=== PATIENT | male | born 2000 | race Hispanic/Latino ===

== ENCOUNTER 2018-08-12 19:07 | Emergency (ER) | payer BC ==
[2018-08-12 19:41] VITALS: BP 138/75; PULSE 88; RESP 16; TEMP 98.2; O2SAT 100
[2018-08-12] MEDS ORDERED: Vancomycin 1 g Inj ONE (20:30)
[2018-08-12] MEDS ORDERED: Lidocaine 1% Inj (20ml) IJ ONE (20:45)
--- NOTE | 2018-08-12 20:45 | CP.PCM.CON ---
History of Present Illness - History of Present Illness History of Present Illness: Podiatry consult note for Dr. Chan, 17 yo with no Pmhx seen and evaluated in the ED for right foot fifth toe pain. Patient states he scratched his toe excessively in his sleep and developed a painful blister the next morning. Patient states he saw a meat stringer regarding this and was advised to keep it covered and was prescribed bactrim. Patient states he has been taking the antibiotic twice a day however has not noticed any difference and states its gotten worse. States he noticed purulent drainage from the site this afternoon and decided to come to the ED. Patient states he has experienced this before in his shoulder, thigh, and groin however its usually resolved with a course of antibiotics. States he had food poisoning this past weekend and has experienced nausea and vomiting. However no fever, chills, SOB. Pmhx: none Pshx: none Allergies: shellfish, pets, amoxicillin (rash and hives) Social hx: denies smoking or recreational drugs, admits to occasional alcohol Meds Home Medications: Home Medication List Medication Instructions Recorded Confirmed Type Clindamycin [Cleocin] 450 mg PO TID #63 cap 08/12/18 Rx Naproxen [Naprosyn] 500 mg PO BID PRN #15 tablet 08/12/18 Rx Allergies/Adverse Reactions: Allergies Allergy/AdvReac Type Severity Reaction Status Date / Time amoxicillin Allergy RASH Verified 08/12/18 19:37 - Medications Medications: Current Medications Vancomycin HCl 1 gm/ Sodium (Chloride) 250 mls @ 166.667 mls/hr IVPB DAILY HORACIO; Protocol Physical Exam - Constitutional Appears: Well, Non-toxic, No Acute Distress - Head Exam Head Exam: ATRAUMATIC - Respiratory Exam Respiratory Exam: NORMAL BREATHING PATTERN - Extremities Exam Additional comments: Right lower extremity exam: vascular: DP/PT 2/4, CFT <3 secs x5, TG warm to warm ( warmer over the lateral dorsal foot), minimal dorsal edema, erythema noted on dorsal lateral aspect of the foot. derm: wound noted on the dorsal aspect of the fifth toe measuring approximately .5cm x .5 cm with active purulent drainage, no malodor, no tracking or tunneling noted, no probe to bone xerosis of skin noted on the plantar distal aspect of the foot. IDM in the 3rd and 4th interspace with no opening ortho: pain with ROM of the fifth toe, no pain with ROM of the ankle, no pain with ROM of 1-4 digits. - Neurological Exam Neurological exam: Alert, Oriented x3 Results - Vital Signs Recent Vital Signs: Last Vital Signs Temp 98.2 F 08/12/18 19:37 Pulse 88 08/12/18 19:37 Resp 16 08/12/18 19:37 BP 138/75 08/12/18 19:37 Pulse Ox 100 08/12/18 19:37 - Labs Result Diagrams: 08/12/18 20:40 08/12/18 20:40 Assessment & Plan - Assessment and Plan (Free Text) Assessment: 17 yo male seen and evaluated for right foot infected wound with cellulitis on the dorsal aspect of the foot Plan: Patient seen and evaluated Chart, labs and vitals reviewed; afebrile and absent leukocytosis X-rays reviewed; erosion noted on the medial aspect of the fifth met head to suggest osteomyelitis. As per podiatry, clinical history does not match the x-ray read to suggest osteomyelitis as the blister has only been present for 4 days. 6 c of 1% lidocaine injected proximally to the abscess. Site drained with sterile suture kit and #15 blade. Patient tolerated without any complications. Patient advised to stop taking bactrim, patient to switch to clindamycin 450 mg TID Patient advised to take pain medications prn Patient advised to return to ED if symptoms worsen Patient to follow up with Dr. Chan or podiatry clinic within the next few days Thank you for the consult
[2018-08-12] MEDS ORDERED: Lidocaine Hydrochloride 1% 10 ML ONE (20:51)
[2018-08-12 21:00] LABS: BASO % 0.5 % (0.0-2.0); EOS # 0.4 K/uL (0.0-0.7); EOS % 4.3 % (0.0-4.0); LYMPH # 1.5 K/uL (1.0-4.3); LYMPH % 17.6 % (20.0-40.0); MEAN CELL VOLUME 93.2 fl (80.0-94.0); MEAN CORPUSCULAR HEMOGLOBIN 32.4 pg (27.0-31.0); MEAN CORPUSCULAR HGB CONC 34.8 g/dL (33.0-37.0); MEAN PLATELET VOLUME 8.6 fl (7.2-11.7); MONO # 0.5 K/uL (0.0-0.8); MONO % 5.9 % (0.0-10.0); NEUT # 6.3 K/uL (1.8-7.0); NEUT % 71.7 % (50.0-75.0); NRBC % 0.1 % (0.0-0.0); RBC 4.63 Mil/uL (4.40-5.90); RED CELL DISTRIBUTION WIDTH 12.5 % (11.5-14.5); WHITE BLOOD COUNT 8.8 K/uL (4.8-10.8)
[2018-08-12 21:07] LABS: ALB/GLOB RATIO 1.2 (1.0-2.1); ALBUMIN 4.5 g/dL (3.5-5.0); ALT/SGPT 15 U/L (21-72); AST/SGOT 23 U/L (17-59); BLOOD UREA NITROGEN 12 mg/dl (9-20); GFR NON-AFRICAN AMERICAN > 60
[2018-08-12 21:08] LABS: INR 1.1; PROTHROMBIN TIME 12.6 Seconds (9.8-13.1)
--- NOTE | 2018-08-12 21:09 | ED PDOC ---
Lower Extremity Pain/Injury Time Seen by Provider: 08/12/18 19:56 Chief Complaint (Nursing): Abnormal Skin Integrity Chief Complaint (Provider): Right foot pain History Per: Patient History/Exam Limitations: no limitations Onset/Duration Of Symptoms: Days Current Symptoms Are (Timing): Still Present Additional Complaint(s): 17 year old male presents to the ED for an evaluation of right foot. He reports of a boil on his foot and is currently unable to walk due to the pain. Patient has a history of staph infection and the last infection was on January 19. He went to the channeler insole on Saturday who prescribed Bactrim and Xepi cream without any relief. He is unsure of his last tetanus shot. Otherwise, patient denies fever, numbness or tingling. PMD: no family provider Past Medical History Reviewed: Historical Data, Nursing Documentation, Vital Signs Vital Signs: Last Vital Signs Temp 98.2 F 08/12/18 19:37 Pulse 88 08/12/18 19:37 Resp 16 08/12/18 19:37 BP 138/75 08/12/18 19:37 Pulse Ox 100 08/12/18 19:37 - Medical History Other PMH: staph infection - Family History Family History: States: Unknown Family Hx - Home Medications Home Medications: Ambulatory Orders Medication Instructions Recorded Clindamycin [Cleocin] 450 mg PO TID #63 cap 08/12/18 Naproxen [Naprosyn] 500 mg PO BID PRN #15 tablet 08/12/18 - Allergies Allergies/Adverse Reactions: Allergies Allergy/AdvReac Type Severity Reaction Status Date / Time amoxicillin Allergy RASH Verified 08/15/18 02:28 peanut Allergy ANAPHYLAXIS Verified 08/15/18 02:28 shellfish derived Allergy ANAPHYLAXIS Verified 08/15/18 02:28 Review of Systems ROS Statement: Except As Marked, All Systems Reviewed And Found Negative Constitutional: Negative for: Fever Musculoskeletal: Positive for: Foot Pain (right) Neurological: Negative for: Weakness, Numbness Physical Exam - Reviewed Nursing Documentation Reviewed: Yes Vital Signs Reviewed: Yes - Physical Exam Appears: Positive for: Well, Non-toxic, No Acute Distress Head Exam: Positive for: ATRAUMATIC, NORMAL INSPECTION, NORMOCEPHALIC Skin: Positive for: Normal Color, Warm, Dry. Negative for: Rash Cardiovascular/Chest: Positive for: Regular Rate, Rhythm Respiratory: Positive for: Normal Breath Sounds. Negative for: Decreased Breath Sounds, Respiratory Distress Pulses-Dorsalis Pedis (R): 2+ Extremity: Positive for: Tenderness (to touch), Pedal Edema, Other (erythema and induration on anterior right foot. Ulceration on right 5th digit with drainage; no crepitus ) Neurologic/Psych: Positive for: Alert, Oriented (x3). Negative for: Motor/Sensory Deficits - Laboratory Results Result Diagrams: 08/12/18 20:40 08/12/18 20:40 - ECG O2 Sat by Pulse Oximetry: 100 (RA) Pulse Ox Interpretation: Normal Medical Decision Making Medical Decision Making: Time: 2017 Plan: --CMP --CBC w/ Differential --PTT --Prothrombin time --Lidocaine 1% (20ml) --Vancomycin inj 1gm --Blood culture --Foot right 3 views [RAD] --Reevaluation Accession No. : [id number] Patient Name / ID : JOSEPHINE Mc / [id number] Exam Date : 08/12/2018 20:45:50 ( Approved ) Study Comment : Sex / Age : M / [id number] Creator : Kylie Elizondo Dictator : [facility] Chaplain : [employer] Blower : Kylie Elizondo Approver2 : Report Date : 08/13/2018 10:39:29 My Comment : Date of service: 08/12/2018 PROCEDURE: Right Foot Radiographs. HISTORY: Cellulitis COMPARISON: None. FINDINGS: BONES: Normal. No fracture. JOINTS: Normal. SOFT TISSUES: Swelling. No gas-forming cellulitis noted. OTHER FINDINGS: None. IMPRESSION: No fracture, periosteal reaction or cortical destruction seen to suggest osteomyelitis. In this patient with a history of cellulitis. Soft tissue swelling findings are compatible with this history. No gas-forming cellulitis noted. Pt evaluated by Podiatry resident in ED. Scribe Attestation: Documented by Veronica Ghotra acting as a scribe for Guerita Durand MD Provider Attestation: All medical record entries made by the Scribe were at my direction and personally dictated by me. I have reviewed the chart and agree that the record accurately reflects my personal performance of the history, physical exam, medical decision making, and the department course for this patient. I have also personally directed, reviewed, and agree with the discharge instructions and disposition. Disposition - Clinical Impression Clinical Impression: Cellulitis - Disposition Referrals: Podiatry Clinic [Outside] Olvin Chan DPM [Staff Provider] - Disposition: Routine/Home Disposition Time: 23:12 Condition: STABLE Prescriptions: Clindamycin [Cleocin] 450 mg PO TID #63 cap Naproxen [Naprosyn] 500 mg PO BID PRN #15 tablet PRN Reason: Pain, Moderate (4-7) Instructions: Cellulitis and Erysipelas (Skin Infections) Forms: [employer] (Irish)
[2018-08-12 21:10] LABS: PARTIAL THROMBOPLASTIN TIME 32.5 Seconds (25.6-37.1)
--- NOTE | 2018-08-13 10:42 | RAD ---
Date of service: 08/12/2018 PROCEDURE: Right Foot Radiographs. HISTORY: Cellulitis COMPARISON: None. FINDINGS: BONES: Normal. No fracture. JOINTS: Normal. SOFT TISSUES: Swelling. No gas-forming cellulitis noted. OTHER FINDINGS: None. IMPRESSION: No fracture, periosteal reaction or cortical destruction seen to suggest osteomyelitis. In this patient with a history of cellulitis. Soft tissue swelling findings are compatible with this history. No gas-forming cellulitis noted.
== END 2018-08-12 23:29 | disposition home or self-care (01) ==
LOC: H.ER 19:07
DX: L03.031 Cellulitis of right toe (principal); Z88.0 Allergy status to penicillin
CPT/HCPCS: 73630; 80053; 85025; 85610; 85651; 85730; 87040; 87070; 87149; 87181; 87205; 96374; 99283; J2270

== ENCOUNTER 2018-08-14 16:15 | Inpatient (IN) | payer BC ==
--- NOTE | 2018-08-14 19:06 | ED PDOC ---
Lower Extremity Pain/Injury Time Seen by Provider: 08/14/18 17:50 Chief Complaint (Nursing): Lower Extremity Problem/Injury Chief Complaint (Provider): right foot cellulitis History Per: Patient History/Exam Limitations: no limitations Additional Complaint(s): 17 y/o M with hx of asthma who presents with Right foot cellulitis. Patient states that he was seen here in ED 2 days ago at which time he was noted to have Right foot cellulitis that began after scratching his foot. He was given Vancomycin 1G IV and discharged on Clindamycin PO. He states that he only began yesterday afternoon and already feels significant improvement in pain. He was called by car shakeout operator today and told to come back to ER as his blood cultures showed bacteria in his blood. Pt denies fever, chills or night sweats. States that his foot looks about the same as before but pain has improved. Past Medical History Reviewed: Historical Data, Nursing Documentation, Vital Signs Vital Signs: Last Vital Signs Temp 98.3 F 08/14/18 16:50 Pulse 81 08/14/18 16:50 Resp 16 08/14/18 16:50 BP 152/86 H 08/14/18 16:50 Pulse Ox 98 08/14/18 16:50 - Medical History PMH: Asthma - Family History Family History: States: Unknown Family Hx - Immunization History Hx Tetanus Toxoid Vaccination: No Hx Influenza Vaccination: No Hx Pneumococcal Vaccination: No - Home Medications Home Medications: Ambulatory Orders Medication Instructions Recorded Clindamycin [Cleocin] 450 mg PO TID #63 cap 08/12/18 Naproxen [Naprosyn] 500 mg PO BID PRN #15 tablet 08/12/18 - Allergies Allergies/Adverse Reactions: Allergies Allergy/AdvReac Type Severity Reaction Status Date / Time amoxicillin Allergy RASH Verified 08/12/18 19:37 peanut Allergy ANAPHYLAXIS Verified 08/14/18 16:50 shellfish derived Allergy ANAPHYLAXIS Verified 08/14/18 16:50 Review of Systems Constitutional: Negative for: Fever, Chills Musculoskeletal: Positive for: Foot Pain Physical Exam - Reviewed Nursing Documentation Reviewed: Yes Vital Signs Reviewed: Yes - Physical Exam Appears: Positive for: Well Skin: Positive for: Normal Color Extremity: Positive for: Tenderness (Right foot with ulceration by 5th right digit with diffuse erythema and edema to ankle, + increased warmth, no drainage or fluctuance. ) Neurologic/Psych: Positive for: Alert, Oriented - Laboratory Results Result Diagrams: 08/14/18 18:09 08/14/18 18:09 - ECG O2 Sat by Pulse Oximetry: 98 Medical Decision Making Medical Decision Making: CBC, BMP, VBG lactate Blood cultures Vanco 1G IV x 1 ordered after blood cultures. Podiatry consult WBCs 6K VBG lactate 0.8 20:19: spoke with Dr. Delgadillo re: admission for bacteremia due to cellulitis and care transferred. Disposition - Clinical Impression Clinical Impression: Bacteremia due to Gram-positive bacteria - Patient ED Disposition Is Patient to be Admitted: Yes Discussed With DruRbina: Ant Delgadillo Counseled Patient/Family Regarding: Studies Performed, Diagnosis, Need For Followup - Disposition Disposition: Transfer of Care Disposition Time: 20:29 Condition: FAIR Forms: [employer] (Kinyarwanda)
[2018-08-14 19:12] LABS: VENOUS BLOOD GAS BASE EXCESS 4.9 mmol/L (0.0-2.0); VENOUS BLOOD GAS PCO2 53 mmHg (40-60); VENOUS BLOOD GAS PO2 24 mm/Hg (30-55); VENOUS BLOOD PH 7.38 (7.32-7.43)
[2018-08-14 19:35] LABS: BASO % 0.8 % (0.0-2.0); EOS # 0.2 K/uL (0.0-0.7); EOS % 3.3 % (0.0-4.0); HEMOGLOBIN 14.5 g/dL (12.0-18.0); LYMPH # 1.3 K/uL (1.0-4.3); LYMPH % 22.5 % (20.0-40.0); MEAN CELL VOLUME 92.6 fl (80.0-94.0); MEAN CORPUSCULAR HGB CONC 34.6 g/dL (33.0-37.0); MEAN PLATELET VOLUME 8.6 fl (7.2-11.7); MONO # 0.4 K/uL (0.0-0.8); MONO % 7.1 % (0.0-10.0); NEUT % 66.3 % (50.0-75.0); NRBC % 0.1 % (0.0-0.0); RBC 4.53 Mil/uL (4.40-5.90); RED CELL DISTRIBUTION WIDTH 12.5 % (11.5-14.5)
[2018-08-14 20:00] LABS: BLOOD UREA NITROGEN 21 mg/dl (9-20); CALCIUM 9.9 mg/dL (8.4-10.2); GFR NON-AFRICAN AMERICAN > 60
[2018-08-14] MEDS ORDERED: Vancomycin 1 g Inj ONE (20:41)
[2018-08-15] MEDS ORDERED: Sodium Chloride 0.9% 1,000 ML IV SCH (00:45)
[2018-08-15] MEDS ORDERED: levoFLOXacin 500 mg in D5W 500 MG/100 ML BAG IVPB SCH (05:00)
[2018-08-15 09:19] LABS: BASO % 0.7 % (0.0-2.0); EOS # 0.3 K/uL (0.0-0.7); EOS % 6.3 % (0.0-4.0); HEMOGLOBIN 14.6 g/dL (12.0-18.0); LYMPH # 1.3 K/uL (1.0-4.3); LYMPH % 31.1 % (20.0-40.0); MEAN CELL VOLUME 93.7 fl (80.0-94.0); MEAN CORPUSCULAR HEMOGLOBIN 32.3 pg (27.0-31.0); MEAN CORPUSCULAR HGB CONC 34.5 g/dL (33.0-37.0); MEAN PLATELET VOLUME 8.1 fl (7.2-11.7); MONO # 0.2 K/uL (0.0-0.8); NEUT # 2.3 K/uL (1.8-7.0); NEUT % 55.9 % (50.0-75.0); NRBC % 0.2 % (0.0-0.0); RBC 4.51 Mil/uL (4.40-5.90); RED CELL DISTRIBUTION WIDTH 12.6 % (11.5-14.5); WHITE BLOOD COUNT 4.1 K/uL (4.8-10.8)
[2018-08-15] MEDS: Enoxaparin 40 mg Syringe SC SCH (09:24)
[2018-08-15 10:48] LABS: ALB/GLOB RATIO 1.5 (1.0-2.1); ALBUMIN 4.6 g/dL (3.5-5.0); ALT/SGPT 31 U/L (21-72); AST/SGOT 26 U/L (17-59); BLOOD UREA NITROGEN 17 mg/dl (9-20); CALCIUM 9.7 mg/dL (8.4-10.2); GFR NON-AFRICAN AMERICAN > 60
--- NOTE | 2018-08-15 12:34 | CP.PCM.HP ---
History of Present Illness - History of Present Illness History of Present Illness: CC: Bactremia from Right foot Cellulitis History of Present Illness: A 17 y/o M with hx of asthma who presents with Right foot cellulitis. Patient states that he was seen here in ED 2 days ago at which time he was noted to have Right foot Cellulitis that began after scratching his foot. He was given Vancomycin 1G IV and discharged on Clindamycin PO. He states that he only began yesterday afternoon and already feels significant improvement in pain. 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 Pt denies fever, chills or night sweats. States that his foot looks about the same as before but pain has improved. Patient also states had Cellulitis with MRSA on the Upper extremities and Thigh since january. Denies any IVDA. Present on Admission - Present on Admission Any Indicators Present on Admission: No Review of Systems - Review of Systems All systems: reviewed and no additional remarkable complaints except Review of Systems: As per HPI Past Patient History - Past Medical History & Family History Past Medical History?: Yes - Past Social History Smoking Status: Never Smoked Alcohol: None Drugs: Denies - PULMONARY Hx Asthma: Yes - NEUROLOGICAL Hx Neurological Disorder: No - HEENT Hx HEENT Problems: No - RENAL Hx Chronic Kidney Disease: No - ENDOCRINE/METABOLIC Hx Endocrine Disorders: No - HEMATOLOGICAL/ONCOLOGICAL Hx Blood Disorders: No Hx AIDS: No Hx Human Immunodeficiency Virus (HIV): No - INTEGUMENTARY Hx Dermatological Problems: No Other/Comment: Staph infections - MUSCULOSKELETAL/RHEUMATOLOGICAL Hx Musculoskeletal Disorders: No Hx Falls: No - GASTROINTESTINAL Hx Gastrointestinal Disorders: No - GENITOURINARY/GYNECOLOGICAL Hx Genitourinary Disorders: No - PSYCHIATRIC Hx Psychophysiologic Disorder: No Hx Substance Use: No - SURGICAL HISTORY Hx Surgeries: No - ANESTHESIA Hx Anesthesia: No Meds Allergies/Adverse Reactions: Allergies Allergy/AdvReac Type Severity Reaction Status Date / Time amoxicillin Allergy RASH Verified 08/15/18 02:28 peanut Allergy ANAPHYLAXIS Verified 08/15/18 02:28 shellfish derived Allergy ANAPHYLAXIS Verified 08/15/18 02:28 Physical Exam - Constitutional Appears: Well - Head Exam Head Exam: ATRAUMATIC, NORMAL INSPECTION, NORMOCEPHALIC - Eye Exam Eye Exam: EOMI, Normal appearance, PERRL Pupil Exam: NORMAL ACCOMODATION, PERRL - ENT Exam ENT Exam: Mucous Membranes Moist, Normal Exam - Neck Exam Neck exam: Positive for: Normal Inspection - Respiratory Exam Respiratory Exam: Clear to Auscultation Bilateral, NORMAL BREATHING PATTERN - Cardiovascular Exam Cardiovascular Exam: REGULAR RHYTHM, +S1, +S2 - GI/Abdominal Exam GI & Abdominal Exam: Normal Bowel Sounds, Soft. absent: Tenderness - Extremities Exam Extremities exam: Positive for: full ROM, normal capillary refill Additional comments: wound noted on the dorsal aspect of the fifth toe measuring approximately .5cm x .5cm x 1.7cm with active purulent drainage, no malodor, no tunneling but deep probe appreciated - no probe to bone IDM in the 3rd and 4th interspace with no opening - Back Exam Back exam: FULL ROM, NORMAL INSPECTION - Neurological Exam Neurological exam: Alert, CN II-XII Intact, Normal Gait, Oriented x3, Reflexes Normal - Psychiatric Exam Psychiatric exam: Normal Affect, Normal Mood - Skin Skin Exam: Dry, Intact, Normal Color, Warm Results - Vital Signs Recent Vital Signs: Last Vital Signs Temp 99.1 F 08/15/18 09:00 Pulse 70 08/15/18 09:00 Resp 17 08/15/18 09:00 BP 121/69 08/15/18 09:00 Pulse Ox 99 08/15/18 09:00 - Labs Result Diagrams: 08/15/18 09:00 08/15/18 09:00 Labs: Laboratory Results - last 24 hr 08/14/18 08/14/18 08/14/18 18:09 18:09 19:04 WBC 6.0 RBC 4.53 Hgb 14.5 Hct 42.0 MCV 92.6 MCH 32.0 H MCHC 34.6 RDW 12.5 Plt Count 170 MPV 8.6 Neut % (Auto) 66.3 Lymph % (Auto) 22.5 [place] % (Auto) 7.1 Eos % (Auto) 3.3 Baso % (Auto) 0.8 Neut # (Auto) 4.0 Lymph # (Auto) 1.3 [place] # (Auto) 0.4 Eos # (Auto) 0.2 Baso # (Auto) 0.0 ESR pO2 24 L VBG pH 7.38 VBG pCO2 53 VBG HCO3 27.2 VBG Total CO2 33.0 H VBG O2 Sat (Calc) 43.1 VBG Base Excess 4.9 H VBG Potassium 4.5 Glucose 94 Lactate 0.8 FiO2 21.0 Sodium 139 139.0 Potassium 4.5 Chloride 97 L 104.0 Carbon Dioxide 29 Anion Gap 18 BUN 21 H Creatinine 1.0 Est GFR ( Amer) > 60 Est GFR (Non-Af Amer) > 60 Random Glucose 90 Calcium 9.9 Total Bilirubin AST ALT Alkaline Phosphatase Total Protein Albumin Globulin Albumin/Globulin Ratio Venous Blood Potassium 4.5 08/15/18 08/15/18 09:00 09:00 WBC 4.1 L RBC 4.51 Hgb 14.6 Hct 42.3 MCV 93.7 MCH 32.3 H MCHC 34.5 RDW 12.6 Plt Count 174 MPV 8.1 Neut % (Auto) 55.9 Lymph % (Auto) 31.1 [place] % (Auto) 6.0 Eos % (Auto) 6.3 H Baso % (Auto) 0.7 Neut # (Auto) 2.3 Lymph # (Auto) 1.3 [place] # (Auto) 0.2 Eos # (Auto) 0.3 Baso # (Auto) 0.0 ESR 12 pO2 VBG pH VBG pCO2 VBG HCO3 VBG Total CO2 VBG O2 Sat (Calc) VBG Base Excess VBG Potassium Glucose Lactate FiO2 Sodium 141 Potassium 4.1 Chloride 97 L Carbon Dioxide 31 H Anion Gap 17 BUN 17 Creatinine 0.9 Est GFR ( Amer) > 60 Est GFR (Non-Af Amer) > 60 Random Glucose 133 H Calcium 9.7 Total Bilirubin 1.1 AST 26 ALT 31 Alkaline Phosphatase 65 Total Protein 7.7 Albumin 4.6 Globulin 3.1 Albumin/Globulin Ratio 1.5 Venous Blood Potassium Assessment & Plan (1) Cellulitis of right foot Assessment and Plan: R/O Osteomyelitis Status: Acute Priority: High (2) Bacteremia due to Gram-positive bacteria Assessment and Plan: Community Acquired MRSA R/O Infective Endocarditis Status: Acute Priority: High - Assessment and Plan (Free Text) Plan: IVF IV Vancomycin and Levaquin Wound Care Daily ESR/CRP MRI of the right Foot TTE Pain Control with IV Medication IDConsult Harvest Manager onboard
--- NOTE | 2018-08-15 17:20 | CP.PCM.PN ---
Subjective - Date & Time of Evaluation Date of Evaluation: 08/15/18 Time of Evaluation: 17:11 - Subjective Subjective: I D NOTE PATIENT EXAMINED ,HISTORY TAKEN EMR REVIEWED,HAS POSITIVE BLOOD CULTURES FOR MRSA.AWAIT ECHOCARDIOGRAM & MRI DISCUSSED C PATIENT AND HIS MOTHER HAS PAST HISTORY OF STAPHYLOCOCCAL INFECTIONS IF OSTEOMYELITIS AND /OR WHAT APPEARS TO BE SEPTIC ARTHRITIS WILL NEED 6 WEEKS OF IV ANTIBIOTIC RX FULL COSULT TO BE DICTATED Objective - Vital Signs/Intake and Output Vital Signs (last 24 hours): Temp Pulse Resp BP Pulse Ox 99.1 F 70 17 121/69 99 08/15/18 09:00 08/15/18 09:00 08/15/18 09:00 08/15/18 09:00 08/15/18 09:00 Intake and Output: 08/15/18 08/15/18 06:59 18:59 Intake Total 650 Balance 650 - Medications Medications: Current Medications Enoxaparin Sodium (Lovenox) 40 mg SC DAILY HORACIO; Protocol Last Admin: 08/15/18 09:24 Dose: 40 mg Vancomycin HCl 1 gm/ Sodium (Chloride) 250 mls @ 166.667 mls/hr IVPB Q12 HORACIO; Protocol Last Admin: 08/15/18 09:24 Dose: 166.667 mls/hr Sodium Chloride (Sodium Chloride 0.9%) 1,000 mls @ 100 mls/hr IV .Q10H HORACIO Stop: 08/16/18 00:44 Last Admin: 08/15/18 00:59 Dose: 100 mls/hr Levofloxacin/Dextrose (Levaquin 500mg) 500 mg in 100 mls @ 100 mls/hr IVPB DAILY@0500 HORACIO; Protocol Ketorolac Tromethamine (Toradol) 15 mg IVP Q6 PRN PRN Reason: Pain, moderate (4-7) Morphine Sulfate (Morphine) 2 mg IVP Q4 PRN PRN Reason: Pain, severe (8-10) Mupirocin (Bactroban Ointment) 1 applic TOP BID HROACIO - Labs Labs: 08/15/18 09:00 08/15/18 09:00
--- NOTE | 2018-08-15 17:27 | MRI ---
Date of service: 08/15/2018 PROCEDURE: MRI Right Foot HISTORY: Pain. COMPARISON: Right foot radiographs 08/12/2018. TECHNIQUE: Multiecho multiplanar sequences were performed through the right foot without the use of intravenous contrast. FINDINGS: Forefoot/midfoot anatomy captured this exam excluding the hindfoot. BONES: No fracture. Normal marrow signal. No overt MR pattern of osteomyelitis in the visualized bony structures of the forefoot and midfoot. MUSCLES: Normal. SOFT TISSUES: Extensive dorsal soft tissue edema is appreciated primarily throughout the midfoot and proximal portion of the forefoot without definite abscess formation appreciable. Some plantar edema is appreciated at the forefoot as well though this is minimal. LISFRANC LIGAMENT: No intrinsic signal abnormality identified. PLANTAR PLATE: Normal. EXTENSOR TENDONS: Normal. FLEXOR TENDONS: Normal. OTHER FINDINGS: None. IMPRESSION: Extensive dorsal foot subcutaneous soft tissue edema is seen with minimal edema at the forefoot plantar soft tissues. No abscess or osteomyelitis pattern. Tendons appear intact without tear or tenosynovitis. No definite abscess formation appreciable.
--- NOTE | 2018-08-15 17:36 | CARD ---
APPROVED REPORT Date of service: 08/15/2018 EXAM: Two-dimensional and M-mode echocardiogram with Doppler and color Doppler. Other Information Quality : GoodRhythm : NSR INDICATION Subacute bacterial endocarditis 2D DIMENSIONS IVSd0.95 (0.7-1.1cm)LVDd4.28 (3.9-5.9cm) LVOT Diameter2.47 (1.8-2.4cm)PWd1.18 (0.7-1.1cm) IVSs1.25 (0.8-1.2cm)LVDs3.18 (2.5-4.0cm) FS (%) 25.6 %PWs1.46 (0.8-1.2cm) M-Mode DIMENSIONS Left Atrium (MM)3.26 (2.5-4.0cm)IVSd0.79 (0.7-1.1cm) Aortic Root3.44 (2.2-3.7cm)LVDd5.38 (4.0-5.6cm) Aortic Cusp Exc.2.38 (1.5-2.0cm)PWd0.76 (0.7-1.1cm) IVSs1.32 cmFS (%) 44 % LVDs3.00 (2.0-3.8cm)PWs1.44 cm Aortic Valve AoV Peak Hfszzqcb178.1cm/sAoV VTI31.1cmAO Peak GR.12mmHg LVOT Peak Nmidkqfq43.7cm/sLVOT VTI20.92cmAO Mean GR.6mmHg DALILA (VMAX)1.67fl9AAS (VTI)1.26gc2EP P 1/2 Nsin427oj Mitral Valve MV E Qihmxwgx61.4cm/sMV DECEL PPTT471tiTU A Nygnjivy21.5cm/s MV FVR73sgE/A ratio1.9MVA (PHT)4.52cm2 TDI Lateral E' Peak V22.29cm/sMedial E' Peak V13.28cm/sE/Lateral E'3.7 E/Medial E'6.3 LEFT VENTRICLE The left ventricle is normal size. There is normal left ventricular wall thickness. The left ventricular systolic function is normal. The estimated ejection fraction is 55-60% No regional wall motion abnormalities noted.. The left ventricular diastolic function is normal. No left ventricle thrombus noted on this study. There is no ventricular septal defect visualized. There is no left ventricular aneurysm. There is no mass noted in the left ventricle. RIGHT VENTRICLE The right ventricle is normal size. There is normal right ventricular wall thickness. The right ventricular systolic function is normal. ATRIA The left atrium size is normal. The right atrium size is normal. The interatrial septum is intact with no evidence for an atrial septal defect. AORTIC VALVE The aortic valve is normal in structure. Mild to moderate aortic regurgitation is present. There is no aortic valvular stenosis. There is no aortic valvular vegetation. MITRAL VALVE The mitral valve is normal in structure. There is no evidence of mitral valve prolapse. There is no mitral valve stenosis. There is no mitral valve regurgitation noted. TRICUSPID VALVE The tricuspid valve is normal in structure. There is no tricuspid valve regurgitation noted. There is no tricuspid valve prolapse or vegetation. There is no tricuspid valve stenosis. PULMONIC VALVE The pulmonary valve is normal in structure. There is trace pulmonic valvular regurgitation. There is no pulmonic valvular stenosis. GREAT VESSELS The aortic root is normal in size. The ascending aorta is normal in size. The pulmonary artery is normal. The IVC is normal in size and collapses >50% with inspiration. PERICARDIAL EFFUSION There is no pericardial effusion. There is no pleural effusion. <Conclusion> The estimated ejection fraction is 55-60% The left ventricular diastolic function is normal. The left atrium size is normal. Mild to moderate aortic regurgitation is present. There is no tricuspid valve regurgitation noted. There is no obvious vegetation noted on this study but aortic regurgitation is concerning for possible endocarditis. Correlate clinically.
--- NOTE | 2018-08-15 18:47 | CP.PCM.CON ---
History of Present Illness - History of Present Illness History of Present Illness: Podiatry consult note - Dr. Chan 17M with pmhx of asthma seen and evaluated at bedside for right foot wound and cellulitis. Patient was seen earlier this week in the ED where his wound was drained and he was sent home on PO abx. Patients wound and blood cx came back with gram positive cocci and he was contacted and instructed to return to the hospital for IV abx and admission. States that his foot has been feeling better since he was seen this week and that he has been able to move his toes and rest more comfortably. States that he has been nonweightbearing to the right foot and ambulating with crutches. Denies n/v/f/c/sob/cp and has no other acute complaints at this time. PMHx: asthma PSHx: denies All: amoxicillin, peanut, shellfish Past Patient History - Past Medical History & Family History Past Medical History?: Yes - Past Social History Smoking Status: Never Smoked - PULMONARY Hx Asthma: Yes - NEUROLOGICAL Hx Neurological Disorder: No - HEENT Hx HEENT Problems: No - RENAL Hx Chronic Kidney Disease: No - ENDOCRINE/METABOLIC Hx Endocrine Disorders: No - HEMATOLOGICAL/ONCOLOGICAL Hx Blood Disorders: No Hx AIDS: No Hx Human Immunodeficiency Virus (HIV): No - INTEGUMENTARY Hx Dermatological Problems: No Other/Comment: Staph infections - MUSCULOSKELETAL/RHEUMATOLOGICAL Hx Musculoskeletal Disorders: No Hx Falls: No - GASTROINTESTINAL Hx Gastrointestinal Disorders: No - GENITOURINARY/GYNECOLOGICAL Hx Genitourinary Disorders: No - PSYCHIATRIC Hx Psychophysiologic Disorder: No Hx Substance Use: No - SURGICAL HISTORY Hx Surgeries: No - ANESTHESIA Hx Anesthesia: No Meds Allergies/Adverse Reactions: Allergies Allergy/AdvReac Type Severity Reaction Status Date / Time amoxicillin Allergy RASH Verified 08/15/18 02:28 peanut Allergy ANAPHYLAXIS Verified 08/15/18 02:28 shellfish derived Allergy ANAPHYLAXIS Verified 08/15/18 02:28 - Medications Medications: Current Medications Enoxaparin Sodium (Lovenox) 40 mg SC DAILY [facility]; Protocol Last Admin: 08/15/18 09:24 Dose: 40 mg Vancomycin HCl 1 gm/ Sodium (Chloride) 250 mls @ 166.667 mls/hr IVPB Q12 [facility]; Protocol Last Admin: 08/15/18 09:24 Dose: 166.667 mls/hr Sodium Chloride (Sodium Chloride 0.9%) 1,000 mls @ 100 mls/hr IV .Q10H ON LICENSE OF [facility] Stop: 08/16/18 00:44 Last Admin: 08/15/18 00:59 Dose: 100 mls/hr Levofloxacin/Dextrose (Levaquin 500mg) 500 mg in 100 mls @ 100 mls/hr IVPB DAILY@0500 [facility]; Protocol Ketorolac Tromethamine (Toradol) 15 mg IVP Q6 PRN PRN Reason: Pain, moderate (4-7) Morphine Sulfate (Morphine) 2 mg IVP Q4 PRN PRN Reason: Pain, severe (8-10) Mupirocin (Bactroban Ointment) 1 applic TOP BID ON LICENSE OF [facility] Physical Exam - Constitutional Appears: Non-toxic - Head Exam Head Exam: ATRAUMATIC - Extremities Exam Additional comments: RLE examination VASC: DP and PT pulses palpable; cap refill <3 seconds to all digits; temp gradient warm to warm from proximal to distal; edema appreciated, greater at lateral/dorsal aspect of the forefoot DERM: wound noted on the dorsal aspect of the fifth toe measuring approximately .5cm x .5cm x 1.7cm with active purulent drainage, no malodor, no tunneling but deep probe appreciated - no probe to bone IDM in the 3rd and 4th interspace with no opening ORTHO: mild pain with ROM of the fifth toe, no pain with ROM of the ankle, no pain with ROM of 1-4 digits NEURO: gross and protective sensation intact - Neurological Exam Neurological exam: Alert, Oriented x3 - Psychiatric Exam Psychiatric exam: Normal Affect, Normal Mood Results - Vital Signs Recent Vital Signs: Last Vital Signs Temp 98 F 08/15/18 17:00 Pulse 68 08/15/18 17:00 Resp 17 08/15/18 17:00 BP 112/68 08/15/18 17:00 Pulse Ox 100 08/15/18 17:00 - Labs Result Diagrams: 08/15/18 09:00 08/15/18 09:00 Labs: Laboratory Results - last 24 hr 08/14/18 08/14/18 08/14/18 18:09 18:09 19:04 WBC 6.0 RBC 4.53 Hgb 14.5 Hct 42.0 MCV 92.6 MCH 32.0 H MCHC 34.6 RDW 12.5 Plt Count 170 MPV 8.6 Neut % (Auto) 66.3 Lymph % (Auto) 22.5 [place] % (Auto) 7.1 Eos % (Auto) 3.3 Baso % (Auto) 0.8 Neut # (Auto) 4.0 Lymph # (Auto) 1.3 [place] # (Auto) 0.4 Eos # (Auto) 0.2 Baso # (Auto) 0.0 ESR pO2 24 L VBG pH 7.38 VBG pCO2 53 VBG HCO3 27.2 VBG Total CO2 33.0 H VBG O2 Sat (Calc) 43.1 VBG Base Excess 4.9 H VBG Potassium 4.5 Glucose 94 Lactate 0.8 FiO2 21.0 Sodium 139 139.0 Potassium 4.5 Chloride 97 L 104.0 Carbon Dioxide 29 Anion Gap 18 BUN 21 H Creatinine 1.0 Est GFR ( Amer) > 60 Est GFR (Non-Af Amer) > 60 Random Glucose 90 Calcium 9.9 Total Bilirubin AST ALT Alkaline Phosphatase Total Protein Albumin Globulin Albumin/Globulin Ratio Venous Blood Potassium 4.5 08/15/18 08/15/18 09:00 09:00 WBC 4.1 L RBC 4.51 Hgb 14.6 Hct 42.3 MCV 93.7 MCH 32.3 H MCHC 34.5 RDW 12.6 Plt Count 174 MPV 8.1 Neut % (Auto) 55.9 Lymph % (Auto) 31.1 [place] % (Auto) 6.0 Eos % (Auto) 6.3 H Baso % (Auto) 0.7 Neut # (Auto) 2.3 Lymph # (Auto) 1.3 [place] # (Auto) 0.2 Eos # (Auto) 0.3 Baso # (Auto) 0.0 ESR 12 pO2 VBG pH VBG pCO2 VBG HCO3 VBG Total CO2 VBG O2 Sat (Calc) VBG Base Excess VBG Potassium Glucose Lactate FiO2 Sodium 141 Potassium 4.1 Chloride 97 L Carbon Dioxide 31 H Anion Gap 17 BUN 17 Creatinine 0.9 Est GFR ( Amer) > 60 Est GFR (Non-Af Amer) > 60 Random Glucose 133 H Calcium 9.7 Total Bilirubin 1.1 AST 26 ALT 31 Alkaline Phosphatase 65 Total Protein 7.7 Albumin 4.6 Globulin 3.1 Albumin/Globulin Ratio 1.5 Venous Blood Potassium Assessment & Plan - Assessment and Plan (Free Text) Assessment: 17M with pmhx of asthma seen and evaluated for cellulitis 2/2 to right foot wound Plan: Patient seen and evaluated with Dr. Chan VSS, absent leukocytosis 2cc of pus expressed from wound upon palpation Site flushed and dressed with telfa and DSD MRI ordered - f/u results NPO status, per MRI, potential OR for incision and drainage and bone biopsy Continue IV abx per ID - recs appreciated Podiatry to continue to follow Thank you for the consult Further recs per Dr. Chan - Date & Time Date: 08/15/18 Time: 11:05
[2018-08-16] MEDS: levoFLOXacin 500 mg in D5W 500 MG/100 ML BAG IVPB SCH (05:56)
[2018-08-16] MEDS: Enoxaparin 40 mg Syringe SC SCH (09:05)
--- NOTE | 2018-08-16 11:38 | CP.PCM.PN ---
Subjective - Date & Time of Evaluation Date of Evaluation: 08/16/18 Time of Evaluation: 11:25 - Subjective Subjective: I D NOTE HAVE REVIEWED ECHOCARDIOGRAM AND NOTED AORTIC REGURGITATION ,QUESTIONABLE ENDOCARDITIS HAVE DISCUSSED c WHO WILL BE ORDERING CARDIOLOGY TO SEE. CONTINUE VANCOMYCIN TROUGH LEVELS ORDERED WILL RE EVALUATE MRI c PODIATRY Objective - Vital Signs/Intake and Output Vital Signs (last 24 hours): Temp Pulse Resp BP Pulse Ox 97.6 F 55 L 20 123/63 99 08/16/18 01:00 08/16/18 01:00 08/16/18 01:00 08/16/18 01:00 08/16/18 01:00 - Medications Medications: Current Medications Enoxaparin Sodium (Lovenox) 40 mg SC DAILY [facility]; Protocol Last Admin: 08/16/18 09:05 Dose: 40 mg Vancomycin HCl 1 gm/ Sodium (Chloride) 250 mls @ 166.667 mls/hr IVPB Q12 [facility]; Protocol Last Admin: 08/16/18 09:08 Dose: 166.667 mls/hr Levofloxacin/Dextrose (Levaquin 500mg) 500 mg in 100 mls @ 100 mls/hr IVPB DAILY@0500 [facility]; Protocol Last Admin: 08/16/18 05:56 Dose: 100 mls/hr Ketorolac Tromethamine (Toradol) 15 mg IVP Q6 PRN PRN Reason: Pain, moderate (4-7) Morphine Sulfate (Morphine) 2 mg IVP Q4 PRN PRN Reason: Pain, severe (8-10) Mupirocin (Bactroban Ointment) 1 applic TOP BID [facility] Last Admin: 08/16/18 09:00 Dose: 1 applic - Labs Labs: 08/15/18 09:00 08/15/18 09:00
[2018-08-16] MEDS ORDERED: Povidone Iodine Topical 10% Sol ONE (12:08)
--- NOTE | 2018-08-16 13:27 | CP.PCM.PN ---
Subjective - Date & Time of Evaluation Date of Evaluation: 08/16/18 Time of Evaluation: 13:27 - Subjective Subjective: Podiatry Consult Note: Dr. Chan Patient seen and evaluated this morning, patient resting comfortably and in NAD. No acute events overnight. Patient denies any pain to his ulceration site at this time. Denies nausea/vomiting/fever/chills/chest pain and has no other acute complaints at this time. Objective - Vital Signs/Intake and Output Vital Signs (last 24 hours): Temp Pulse Resp BP Pulse Ox 97.6 F 55 L 20 123/63 99 08/16/18 01:00 08/16/18 01:00 08/16/18 01:00 08/16/18 01:00 08/16/18 01:00 - Medications Medications: Current Medications Enoxaparin Sodium (Lovenox) 40 mg SC DAILY [facility]; Protocol Last Admin: 08/16/18 09:05 Dose: 40 mg Vancomycin HCl 1 gm/ Sodium (Chloride) 250 mls @ 166.667 mls/hr IVPB Q12 [facility]; Protocol Last Admin: 08/16/18 09:08 Dose: 166.667 mls/hr Levofloxacin/Dextrose (Levaquin 500mg) 500 mg in 100 mls @ 100 mls/hr IVPB DAILY@0500 [facility]; Protocol Last Admin: 08/16/18 05:56 Dose: 100 mls/hr Ketorolac Tromethamine (Toradol) 15 mg IVP Q6 PRN PRN Reason: Pain, moderate (4-7) Morphine Sulfate (Morphine) 2 mg IVP Q4 PRN PRN Reason: Pain, severe (8-10) Mupirocin (Bactroban Ointment) 1 applic TOP BID [facility] Last Admin: 08/16/18 09:00 Dose: 1 applic - Labs Labs: 08/15/18 09:00 08/15/18 09:00 - Constitutional Appears: Non-toxic, No Acute Distress - Head Exam Head Exam: ATRAUMATIC, NORMOCEPHALIC - Extremities Exam Additional comments: RLE examination VASC: DP and PT pulses palpable; cap refill <3 seconds to all digits; temp gradient warm to warm from proximal to distal; edema appreciated, greater at lateral/dorsal aspect of the forefoot DERM: wound noted on the dorsal aspect of the fifth toe measuring approximately .5cm x .5cm x 1.7cm with no active drainage, no purulence appreciated, no malodor, no tunneling but deep probe appreciated - no probe to bone IDM in the 3rd and 4th interspace with no opening ORTHO: mild pain with ROM of the fifth toe, no pain with ROM of the ankle, no pain with ROM of 1-4 digits NEURO: gross and protective sensation intact - Neurological Exam Neurological Exam: Alert, Awake, Oriented x3 - Psychiatric Exam Psychiatric exam: Normal Affect, Normal Mood Assessment and Plan - Assessment and Plan (Free Text) Assessment: 17 year old male with PMHx of asthma seen and evaluated for cellulitis 2/ to right foot wound Plan: Patient seen and evaluated Discussed patient plan with Dr. Dustin GARCIAS, absent leukocytosis Local wound care: saline, betadine, DSD Blood culture (08/14); no growth after 48hrs Previous blood culture (08/12); MRSA R foot wound culture (08/12); MRSA MRI ordered -extensive dorsal foot subcutaneous soft tissue edema is seen with minimal edema at the forefoot plantar soft tissues. No abscess or OM pattern. Tendons appear intact. No definite abscess formation appreciable. Echo; Aortic regurgitation is concerning for possible endocarditis Continue IV abx per ID - recs appreciated Will continue to follow
--- NOTE | 2018-08-16 21:16 | CP.PCM.CON ---
History of Present Illness - History of Present Illness History of Present Illness: Consultation for evaluation of aortic valve endocarditis HPI: Jj is a 17-year-old otherwise healthy male with history of asthma who sustained a traumatic injury to his right toe with and subsequently developed cellulitis which did not resolve with with subsequently got worse and subsequently 2 days later progressively developed worsening colitis for which he was given antibiotic he was here last Saturday when was subsequently discharged from the ER where his blood cultures grew staph sensitive MRSA subsequently he was readmitted on echocardiogram was done which showed mild aortic regurgitation with concern for possible endocarditis clinically no more fevers or chills repeat cultures drawn on the are negative so far. Review of Systems - Review of Systems Systems not reviewed;Unavailable: Acuity of Condition - Constitutional Constitutional: As Per HPI - EENT Eyes: As Per HPI Ears: As Per HPI Nose/Mouth/Throat: As Per HPI - Cardiovascular Cardiovascular: As Per HPI - Respiratory Respiratory: As Per HPI - Gastrointestinal Gastrointestinal: As Per HPI - Genitourinary Genitourinary: As Per HPI - Reproductive: Male Reproductive:Male: As Per HPI - Musculoskeletal Musculoskeletal: As Per HPI - Integumentary Integumentary: As Per HPI - Neurological Neurological: As Per HPI - Psychiatric Psychiatric: As Per HPI - Endocrine Endocrine: As Per HPI - Hematologic/Lymphatic Hematologic: As Per HPI Past Patient History - Past Medical History & Family History Past Medical History?: Yes - Past Social History Smoking Status: Never Smoked - PULMONARY Hx Asthma: Yes - NEUROLOGICAL Hx Neurological Disorder: No - HEENT Hx HEENT Problems: No - RENAL Hx Chronic Kidney Disease: No - ENDOCRINE/METABOLIC Hx Endocrine Disorders: No - HEMATOLOGICAL/ONCOLOGICAL Hx Blood Disorders: No Hx AIDS: No Hx Human Immunodeficiency Virus (HIV): No - INTEGUMENTARY Hx Dermatological Problems: No Other/Comment: Staph infections - MUSCULOSKELETAL/RHEUMATOLOGICAL Hx Musculoskeletal Disorders: No Hx Falls: No - GASTROINTESTINAL Hx Gastrointestinal Disorders: No - GENITOURINARY/GYNECOLOGICAL Hx Genitourinary Disorders: No - PSYCHIATRIC Hx Psychophysiologic Disorder: No Hx Substance Use: No - SURGICAL HISTORY Hx Surgeries: No - ANESTHESIA Hx Anesthesia: No Meds Allergies/Adverse Reactions: Allergies Allergy/AdvReac Type Severity Reaction Status Date / Time amoxicillin Allergy RASH Verified 08/15/18 02:28 peanut Allergy ANAPHYLAXIS Verified 08/15/18 02:28 shellfish derived Allergy ANAPHYLAXIS Verified 08/15/18 02:28 - Medications Medications: Current Medications Enoxaparin Sodium (Lovenox) 40 mg SC DAILY [facility]; Protocol Last Admin: 08/16/18 09:05 Dose: 40 mg Vancomycin HCl 1 gm/ Sodium (Chloride) 250 mls @ 166.667 mls/hr IVPB Q12 [facility]; Protocol Last Admin: 08/16/18 09:08 Dose: 166.667 mls/hr Levofloxacin/Dextrose (Levaquin 500mg) 500 mg in 100 mls @ 100 mls/hr IVPB DAILY@0500 [facility]; Protocol Last Admin: 08/16/18 05:56 Dose: 100 mls/hr Ketorolac Tromethamine (Toradol) 15 mg IVP Q6 PRN PRN Reason: Pain, moderate (4-7) Morphine Sulfate (Morphine) 2 mg IVP Q4 PRN PRN Reason: Pain, severe (8-10) Mupirocin (Bactroban Ointment) 1 applic TOP BID [facility] Last Admin: 08/16/18 16:01 Dose: 1 applic Physical Exam - Constitutional Appears: Well - Head Exam Head Exam: ATRAUMATIC, NORMAL INSPECTION, NORMOCEPHALIC - Eye Exam Eye Exam: EOMI, Normal appearance, PERRL Pupil Exam: NORMAL ACCOMODATION, PERRL - ENT Exam ENT Exam: Mucous Membranes Moist, Normal Exam - Neck Exam Neck exam: Positive for: Normal Inspection - Respiratory Exam Respiratory Exam: Clear to Auscultation Bilateral, NORMAL BREATHING PATTERN - Cardiovascular Exam Cardiovascular Exam: REGULAR RHYTHM, RRR, +S1, +S2 - GI/Abdominal Exam GI & Abdominal Exam: Normal Bowel Sounds, Soft. absent: Tenderness - Extremities Exam Extremities exam: Positive for: normal inspection - Back Exam Back exam: NORMAL INSPECTION - Neurological Exam Neurological exam: Alert, CN II-XII Intact, Normal Gait, Oriented x3, Reflexes Normal - Psychiatric Exam Psychiatric exam: Normal Affect, Normal Mood - Skin Skin Exam: Dry, Intact, Normal Color, Warm Results - Vital Signs Recent Vital Signs: Last Vital Signs Temp 98 F 08/16/18 17:00 Pulse 82 08/16/18 17:00 Resp 18 08/16/18 17:00 BP 117/72 08/16/18 17:00 Pulse Ox 99 08/16/18 01:00 - Labs Result Diagrams: 08/15/18 09:00 08/15/18 09:00 Labs: Laboratory Results - last 24 hr 08/16/18 08/16/18 05:20 05:20 ESR 13 Procalcitonin < 0.05 L Assessment & Plan (1) Aortic regurgitation Assessment and Plan: Mild on TTE low likelihood for endocarditis repeat cx -ve from 08/14 Status: Acute (2) Bacteremia due to Gram-positive bacteria Assessment and Plan: resolved repeat Cx -ve on 08/14 cont PO Abx repeat echo once abx course completed Status: Acute (3) Cellulitis Status: Acute
--- NOTE | 2018-08-17 02:21 | CP.PCM.PN ---
Subjective - Date & Time of Evaluation Date of Evaluation: 08/16/18 Time of Evaluation: 15:10 Objective - Vital Signs/Intake and Output Vital Signs (last 24 hours): Temp Pulse Resp BP Pulse Ox 98 F 82 18 117/72 99 08/16/18 17:00 08/16/18 17:00 08/16/18 17:00 08/16/18 17:00 08/16/18 01:00 - Medications Medications: Current Medications Enoxaparin Sodium (Lovenox) 40 mg SC DAILY [facility]; Protocol Last Admin: 08/16/18 09:05 Dose: 40 mg Vancomycin HCl 1 gm/ Sodium (Chloride) 250 mls @ 166.667 mls/hr IVPB Q12 [facility]; Protocol Last Admin: 08/16/18 21:35 Dose: 166.667 mls/hr Levofloxacin/Dextrose (Levaquin 500mg) 500 mg in 100 mls @ 100 mls/hr IVPB DAILY@0500 [facility]; Protocol Last Admin: 08/16/18 05:56 Dose: 100 mls/hr Ketorolac Tromethamine (Toradol) 15 mg IVP Q6 PRN PRN Reason: Pain, moderate (4-7) Morphine Sulfate (Morphine) 2 mg IVP Q4 PRN PRN Reason: Pain, severe (8-10) Mupirocin (Bactroban Ointment) 1 applic TOP BID [facility] Last Admin: 08/16/18 16:01 Dose: 1 applic - Labs Labs: 08/15/18 09:00 08/15/18 09:00
[2018-08-17] MEDS: levoFLOXacin 500 mg in D5W 500 MG/100 ML BAG IVPB SCH (05:55)
[2018-08-17] MEDS: Enoxaparin 40 mg Syringe SC SCH (08:59)
--- NOTE | 2018-08-17 14:09 | CP.PCM.PN ---
Subjective - Date & Time of Evaluation Date of Evaluation: 08/17/18 Time of Evaluation: 14:09 - Subjective Subjective: Podiatry Consult Note: Dr. Chan Patient seen and evaluated this AM for R foot wound. Patient resting comfortably and in NAD. Denies any pain to his R foot at this time. Patient states he has a history of infections like this in the past, on on his thigh and one on his hand. Denies nausea/vomiting/fever/chills/chest pain. Objective - Vital Signs/Intake and Output Vital Signs (last 24 hours): Temp Pulse Resp BP Pulse Ox 98.5 F 55 L 16 106/63 99 08/17/18 08:29 08/17/18 08:29 08/17/18 08:29 08/17/18 08:29 08/17/18 08:29 - Medications Medications: Current Medications Enoxaparin Sodium (Lovenox) 40 mg SC DAILY [facility]; Protocol Last Admin: 08/17/18 08:59 Dose: 40 mg Vancomycin HCl 1 gm/ Sodium (Chloride) 250 mls @ 166.667 mls/hr IVPB Q12 [facility]; Protocol Last Admin: 08/17/18 09:01 Dose: 166.667 mls/hr Levofloxacin/Dextrose (Levaquin 500mg) 500 mg in 100 mls @ 100 mls/hr IVPB DAILY@0500 [facility]; Protocol Last Admin: 08/17/18 05:55 Dose: 100 mls/hr Ketorolac Tromethamine (Toradol) 15 mg IVP Q6 PRN PRN Reason: Pain, moderate (4-7) Morphine Sulfate (Morphine) 2 mg IVP Q4 PRN PRN Reason: Pain, severe (8-10) Mupirocin (Bactroban Ointment) 1 applic TOP BID@0900,2100 [facility] Last Admin: 08/17/18 09:00 Dose: 1 applic - Labs Labs: 08/15/18 09:00 08/15/18 09:00 - Constitutional Appears: Non-toxic, No Acute Distress - Head Exam Head Exam: ATRAUMATIC, NORMOCEPHALIC - Extremities Exam Additional comments: RLE examination Vasc: DP and PT pulses palpable; cap refill <3 seconds to all digits; temp gradient warm to warm from proximal to distal; edema appreciated, greater at lateral/dorsal aspect of the forefoot Neuro: gross and protective sensation intact Derm: ulceration noted on the dorsal aspect of the fifth toe measuring approximately .5cm x .5cm x 1.7cm with no active drainage, no purulence appreciated, no malodor, no tunneling appreciated Ortho: mild pain with ROM of the fifth toe, MMT 5/5 - Neurological Exam Neurological Exam: Alert, Awake, Oriented x3 Assessment and Plan - Assessment and Plan (Free Text) Assessment: 17 year old male with cellulitis 2/2 to right foot ulceration Plan: Patient seen and evaluated Discussed patient plan with Dr. Chan Afebrile, absent leukocytosis Local wound care: saline, betadine, DSD Blood culture (08/14); no growth after 48hrs Previous blood culture (08/12); MRSA R foot wound culture (08/12); MRSA MRI ordered: extensive dorsal foot subcutaneous soft tissue edema is seen with minimal edema at the forefoot plantar soft tissues. No abscess or OM pattern. Tendons appear intact. No definite abscess formation appreciable. Echo; Aortic regurgitation is concerning for possible endocarditis Continue IV abx per ID - recs appreciated Will continue to follow
--- NOTE | 2018-08-18 01:52 | CP.PCM.PN ---
Subjective - Date & Time of Evaluation Date of Evaluation: 08/17/18 Objective - Vital Signs/Intake and Output Vital Signs (last 24 hours): Temp Pulse Resp BP Pulse Ox 97.1 F L 60 20 139/59 L 98 08/17/18 20:25 08/17/18 20:25 08/17/18 20:25 08/17/18 20:25 08/17/18 20:25 Intake and Output: 08/17/18 08/18/18 18:59 06:59 Intake Total 1050 Balance 1050 - Medications Medications: Current Medications Enoxaparin Sodium (Lovenox) 40 mg SC DAILY [facility]; Protocol Last Admin: 08/17/18 08:59 Dose: 40 mg Daptomycin 420 mg/ Sodium (Chloride) 100 mls @ 100 mls/hr IV DAILY@2030 [facility]; Protocol Stop: 08/22/18 19:01 Last Admin: 08/17/18 20:39 Dose: 100 mls/hr Ketorolac Tromethamine (Toradol) 15 mg IVP Q6 PRN PRN Reason: Pain, moderate (4-7) Mupirocin (Bactroban Ointment) 1 applic TOP BID@0900,2100 [facility] Last Admin: 08/17/18 20:52 Dose: 1 applic - Labs Labs: 08/15/18 09:00 08/15/18 09:00
[2018-08-18 07:22] LABS: BASO % 0.9 % (0.0-2.0); EOS # 0.3 K/uL (0.0-0.7); EOS % 8.5 % (0.0-4.0); HEMOGLOBIN 14.3 g/dL (12.0-18.0); INR 1.2; LYMPH # 1.6 K/uL (1.0-4.3); LYMPH % 39.8 % (20.0-40.0); MEAN CELL VOLUME 91.9 fl (80.0-94.0); MEAN CORPUSCULAR HEMOGLOBIN 31.7 pg (27.0-31.0); MEAN CORPUSCULAR HGB CONC 34.5 g/dL (33.0-37.0); MEAN PLATELET VOLUME 8.1 fl (7.2-11.7); MONO # 0.3 K/uL (0.0-0.8); NEUT # 1.8 K/uL (1.8-7.0); NEUT % 43.8 % (50.0-75.0); RBC 4.52 Mil/uL (4.40-5.90); RED CELL DISTRIBUTION WIDTH 12.2 % (11.5-14.5); WHITE BLOOD COUNT 4.1 K/uL (4.8-10.8)
[2018-08-18 07:27] LABS: ALB/GLOB RATIO 1.5 (1.0-2.1); ALBUMIN 4.2 g/dL (3.5-5.0); ALT/SGPT 24 U/L (21-72); AST/SGOT 23 U/L (17-59); BLOOD UREA NITROGEN 15 mg/dl (9-20); GFR NON-AFRICAN AMERICAN > 60
--- NOTE | 2018-08-18 09:01 | CP.PCM.PN ---
Subjective - Date & Time of Evaluation Date of Evaluation: 08/18/18 Time of Evaluation: 08:53 - Subjective Subjective: Podiatry Consult Note: Dr. Chan 17 y/o M Patient seen and evaluated in the bedside for R foot wound. Patient r esting comfortably and in NAD. He denies any pain to his R foot at this time. He denies any overnight nausea/vomiting/fever/chills/chest pain. Patient denies any other pedal complaint at this time. Objective - Vital Signs/Intake and Output Vital Signs (last 24 hours): Temp Pulse Resp BP Pulse Ox 97.8 F 68 20 95/50 L 98 08/18/18 05:00 08/18/18 05:00 08/18/18 05:00 08/18/18 05:00 08/18/18 05:00 - Medications Medications: Current Medications Enoxaparin Sodium (Lovenox) 40 mg SC DAILY [facility]; Protocol Last Admin: 08/17/18 08:59 Dose: 40 mg Daptomycin 420 mg/ Sodium (Chloride) 100 mls @ 100 mls/hr IV DAILY@2030 [facility]; Protocol Stop: 08/22/18 19:01 Last Admin: 08/17/18 20:39 Dose: 100 mls/hr Ketorolac Tromethamine (Toradol) 15 mg IVP Q6 PRN PRN Reason: Pain, moderate (4-7) Mupirocin (Bactroban Ointment) 1 applic TOP BID@0900,2100 [facility] Last Admin: 08/17/18 20:52 Dose: 1 applic - Labs Labs: 08/18/18 06:45 08/18/18 06:45 PT 14.0 Seconds (9.8-13.1) H 08/18/18 06:45 INR 1.2 08/18/18 06:45 APTT 33.0 Seconds (25.6-37.1) 08/18/18 06:45 - Constitutional Appears: Well, Non-toxic, No Acute Distress - Head Exam Head Exam: ATRAUMATIC, NORMOCEPHALIC - Extremities Exam Additional comments: RLE examination Vasc: DP/PT pulses palpable; cap refill <3 seconds to all digits; temp gradient warm to cool from proximal to distal; No edema noted. Neuro: gross and protective sensation intact. Derm: Ulceration noted on the dorsal aspect of the fifth toe measuring approximately 0.4cm x 0.3cm x 0.5cm with no serosangeneous drainage, no purulence appreciated, no malodor, no probe to bone appreciated. MSK: No pain with ROM of the fifth toe, MMT 5/5 to all groups. - Neurological Exam Neurological Exam: Alert, Awake, Oriented x3 - Psychiatric Exam Psychiatric exam: Normal Affect, Normal Mood Assessment and Plan - Assessment and Plan (Free Text) Assessment: 17 y/o M Patient seen and evaluated in the bedside for R foot wound and cellulitis. Plan: Patient seen and evaluated Discussed patient plan with Dr. Chan Charts, labs and vitals reviewed: Afebrile, absent leukocytosis Local wound care: Betadine, xeroform and DSD Blood culture (08/14); no growth after 3 days. Previous blood culture (08/12); MRSA R foot wound culture (08/12); MRSA MRI ordered: extensive dorsal foot subcutaneous soft tissue edema is seen with minimal edema at the forefoot plantar soft tissues. No abscess or OM pattern. Tendons appear intact. No definite abscess formation appreciable. Echo; Aortic regurgitation is concerning for possible endocarditis Continue IV abx per ID - recs appreciated Patient planned to have PICC line and 2 weeks of IV Abx after discharge from the hospital. Patient to continue daily dressing change using betadine, bactroban and DSD at home. Patient to follow up with Dr. Chan upon discharge from the hospital. Podiatry will continue to follow up the patient while i house.
[2018-08-18 10:01] VITALS: RESP 18; O2SAT 99
--- NOTE | 2018-08-18 10:05 | CP.PCM.PN ---
Subjective - Date & Time of Evaluation Date of Evaluation: 08/18/18 Time of Evaluation: 07:45 - Subjective Subjective: Pt seen and examined this morning. Pt denies chest pain, SOB, fevers, or throbbing foot pain. Objective - Vital Signs/Intake and Output Vital Signs (last 24 hours): Temp Pulse Resp BP Pulse Ox 97.6 F 62 18 132/62 99 08/18/18 09:00 08/18/18 09:00 08/18/18 09:00 08/18/18 09:00 08/18/18 09:00 - Medications Medications: Current Medications Enoxaparin Sodium (Lovenox) 40 mg SC DAILY [facility]; Protocol Last Admin: 08/17/18 08:59 Dose: 40 mg Daptomycin 420 mg/ Sodium (Chloride) 100 mls @ 100 mls/hr IV DAILY@2030 [facility]; Protocol Stop: 08/22/18 19:01 Last Admin: 08/17/18 20:39 Dose: 100 mls/hr Ketorolac Tromethamine (Toradol) 15 mg IVP Q6 PRN PRN Reason: Pain, moderate (4-7) Mupirocin (Bactroban Ointment) 1 applic TOP BID@0900,2100 [facility] Last Admin: 08/18/18 09:06 Dose: 1 applic Mupirocin (Bactroban Ointment) 1 applic TOP BID [facility] - Labs Labs: 08/18/18 06:45 08/18/18 06:45 PT 14.0 Seconds (9.8-13.1) H 08/18/18 06:45 INR 1.2 08/18/18 06:45 APTT 33.0 Seconds (25.6-37.1) 08/18/18 06:45 - Constitutional Appears: No Acute Distress - Head Exam Head Exam: ATRAUMATIC, NORMOCEPHALIC - Eye Exam Eye Exam: EOMI - ENT Exam ENT Exam: Mucous Membranes Moist - Neck Exam Neck Exam: Full ROM - Respiratory Exam Respiratory Exam: Clear to Ausculation Bilateral, NORMAL BREATHING PATTERN. absent: Accessory Muscle Use, Respiratory Distress - Cardiovascular Exam Cardiovascular Exam: RRR, +S1, +S2. absent: Diastolic murmur, Murmur - GI/Abdominal Exam GI & Abdominal Exam: Soft, Normal Bowel Sounds. absent: Tenderness - Extremities Exam Extremities Exam: Full ROM. absent: Calf Tenderness, Pedal Edema Additional comments: foot is wrapped in david bandage which is clean dry and intact. - Neurological Exam Neurological Exam: Alert, Awake, Oriented x3 - Psychiatric Exam Psychiatric exam: Normal Affect, Normal Mood - Skin Skin Exam: Intact, Normal Color, Warm Assessment and Plan - Assessment and Plan (Free Text) Assessment: (1) Aortic regurgitation Status: Acute (2) Bacteremia due to Gram-positive bacteria Status: Acute (3) Cellulitis Status: Acute Plan: AR Bacteremia Cellulitis ECHO 08/15/18: EF 55-60%, mild/mod AR, no obvious vegetation repeat ECHO after course of antibiotics Medications daptomycin Pt seen, examined, assessment and plan discussed with Dr Carlos Rosales PGY1, Internal Medicine Resident
[2018-08-18 13:21] VITALS: BP 125/58; PULSE 68; TEMP 99.1
[2018-08-18] MEDS ORDERED: Lidocaine Hydrochloride 5 ML INJ ONE (13:24)
--- NOTE | 2018-08-18 14:08 | PCM.SURG1 ---
Surgeon's Initial Post Op Note - Surgeon's Notes Surgeon: Tracey Sugarcane Planter: None Type of Anesthesia: Local Pre-Operative Diagnosis: Infection Operative Findings: Patent right brachial vein Post-Operative Diagnosis: Infection Operation Performed: Right brachial vein 38cm SL 4F PICC placed with the tip in the prox RA Specimen/Specimens Removed: None Estimated Blood Loss: EBL {In ML}: 1 Date of Surgery/Procedure: 08/18/18 Time of Surgery/Procedure: 13:30
--- NOTE | 2018-08-18 22:14 | VASCULAR ---
Procedure: Ultrasound and fluoroscopically placed Right upper extremity PICC. Clinical indication: Long-term IV antibiotics. Technique: The relative risks and indications of the procedure were explained to the patient and written informed consent obtained. The patient was placed supine on the angiographic table and the right arm prepped and draped in the usual sterile fashion. A tourniquet was applied to the right axilla. 1% lidocaine was used to anesthetize the skin and soft tissues at the puncture site above the elbow. The right basilic vein was punctured under direct ultrasound guidance with a micropuncture set. A permanent image was stored. A 0.018 guidewire was advanced centrally and used to measure the length to the SVC/RA junction. A 4 [place] single-lumen PICC, size 38 cm, was advanced to the SVC/RA junction under fluoroscopic guidance. The catheter was flushed and secured. The patient tolerated the procedure well. Postprocedure chest image was obtained to ensure location of the catheter tip at the SVC right atrial junction. Impression: Ultrasound and fluoroscopically placed right upper extremity PICC. A 4 [place] single-lumen PICC, size 38 cm was advanced to the SVC/RA junction. PICC ready for use.
--- NOTE | 2018-08-19 23:56 | CP.PCM.DIS ---
Provider - Provider Date of Admission: 08/14/18 20:47 Attending physician: Ant Kimbrough MD Consults: 08/15/18 01:30 Infectious Disease Consult Routine Comment: Consulting Provider: Monico Cruz Consulting Physician: Monico Cruz Reason for Consult: bacteremia, cellulitis Podiatry Consult Routine Comment: Consulting Provider: Olvin Can Consulting Physician: Olvin Can Reason for Consult: right foot cellulitis 08/16/18 17:09 Cardiology Consult Routine Comment: Consulting Provider: Esa Gonzalez Consulting Physician: Esa Gonzalez Reason for Consult: AI, ? AV Vegatation R/O IE, MRSA Bactremia Time Spent in preparation of Discharge (in minutes): 25 Diagnosis - Discharge Diagnosis (1) Cellulitis of right foot Status: Acute Priority: High (2) Bacteremia due to Gram-positive bacteria Status: Acute Priority: High (3) Aortic regurgitation Status: Acute Priority: Medium Hospital Course - Lab Results Lab Results: Micro Results 08/14/18 18:09 Blood-Venous Blood Culture - Final NO GROWTH AFTER 5 DAYS 08/14/18 18:09 Blood-Venous Gram Stain - Final TEST NOT PERFORMED 08/14/18 18:09 Blood-Venous Blood Culture - Final NO GROWTH AFTER 5 DAYS 08/14/18 18:09 Blood-Venous Gram Stain - Final TEST NOT PERFORMED 08/15/18 05:00 Naris MRSA Culture (Admit) - Final MRSA NOT DETECTED Most Recent Lab Values WBC 4.1 K/uL (4.8-10.8) L 08/18/18 06:45 RBC 4.52 Mil/uL (4.40-5.90) 08/18/18 06:45 Hgb 14.3 g/dL (12.0-18.0) 08/18/18 06:45 Hct 41.5 % (35.0-51.0) 08/18/18 06:45 MCV 91.9 fl (80.0-94.0) 08/18/18 06:45 MCH 31.7 pg (27.0-31.0) H 08/18/18 06:45 MCHC 34.5 g/dL (33.0-37.0) 08/18/18 06:45 RDW 12.2 % (11.5-14.5) 08/18/18 06:45 Plt Count 185 K/uL (130-400) 08/18/18 06:45 MPV 8.1 fl (7.2-11.7) 08/18/18 06:45 Neut % (Auto) 43.8 % (50.0-75.0) L 08/18/18 06:45 Lymph % (Auto) 39.8 % (20.0-40.0) 08/18/18 06:45 [place] % (Auto) 7.0 % (0.0-10.0) 08/18/18 06:45 Eos % (Auto) 8.5 % (0.0-4.0) H 08/18/18 06:45 Baso % (Auto) 0.9 % (0.0-2.0) 08/18/18 06:45 Neut # (Auto) 1.8 K/uL (1.8-7.0) 08/18/18 06:45 Lymph # (Auto) 1.6 K/uL (1.0-4.3) 08/18/18 06:45 [place] # (Auto) 0.3 K/uL (0.0-0.8) 08/18/18 06:45 Eos # (Auto) 0.3 K/uL (0.0-0.7) 08/18/18 06:45 Baso # (Auto) 0.0 K/uL (0.0-0.2) 08/18/18 06:45 ESR 13 mm/hr (0-15) 08/16/18 05:20 PT 14.0 Seconds (9.8-13.1) H 08/18/18 06:45 INR 1.2 08/18/18 06:45 APTT 33.0 Seconds (25.6-37.1) 08/18/18 06:45 pO2 24 mm/Hg (30-55) L 08/14/18 19:04 VBG pH 7.38 (7.32-7.43) 08/14/18 19:04 VBG pCO2 53 mmHg (40-60) 08/14/18 19:04 VBG HCO3 27.2 mmol/L 08/14/18 19:04 VBG Total CO2 33.0 mmol/L (22-28) H 08/14/18 19:04 VBG O2 Sat (Calc) 43.1 % (40-65) 08/14/18 19:04 VBG Base Excess 4.9 mmol/L (0.0-2.0) H 08/14/18 19:04 VBG Potassium 4.5 mmol/L (3.6-5.2) 08/14/18 19:04 Sodium 139.0 mmol/L (132-148) 08/14/18 19:04 Chloride 104.0 mmol/L (98-107) 08/14/18 19:04 Glucose 94 mg/dL (75-110) 08/14/18 19:04 Lactate 0.8 mmol/L (0.7-2.1) 08/14/18 19:04 FiO2 21.0 % 08/14/18 19:04 Sodium 139 mmol/l (132-148) 08/18/18 06:45 Potassium 4.4 MMOL/L (3.6-5.0) 08/18/18 06:45 Chloride 101 mmol/L (98-107) 08/18/18 06:45 Carbon Dioxide 31 mmol/L (22-30) H 08/18/18 06:45 Anion Gap 11 (10-20) 08/18/18 06:45 BUN 15 mg/dl (9-20) 08/18/18 06:45 Creatinine 1.0 mg/dl (0.8-1.5) 08/18/18 06:45 Est GFR ( Amer) > 60 08/18/18 06:45 Est GFR (Non-Af Amer) > 60 08/18/18 06:45 Random Glucose 94 mg/dL (75-110) 08/18/18 06:45 Calcium 10.0 mg/dL (8.4-10.2) 08/18/18 06:45 Phosphorus 4.7 mg/dl (2.5-4.5) H 08/18/18 06:45 Magnesium 2.1 MG/DL (1.6-2.3) 08/18/18 06:45 Total Bilirubin 0.8 mg/dl (0.2-1.3) 08/18/18 06:45 AST 23 U/L (17-59) 08/18/18 06:45 ALT 24 U/L (21-72) 08/18/18 06:45 Alkaline Phosphatase 60 U/L (38-126) 08/18/18 06:45 Total Creatine Kinase 54 U/L (55-170) L 08/18/18 08:10 Total Protein 7.1 G/DL (6.3-8.2) 08/18/18 06:45 Albumin 4.2 g/dL (3.5-5.0) 08/18/18 06:45 Globulin 2.9 gm/dL (2.2-3.9) 08/18/18 06:45 Albumin/Globulin Ratio 1.5 (1.0-2.1) 08/18/18 06:45 Procalcitonin < 0.05 NG/ML (0.19-0.49) L 08/16/18 05:20 Venous Blood Potassium 4.5 mmol/L (3.6-5.2) 08/14/18 19:04 Discharge Exam - Head Exam Head Exam: ATRAUMATIC, NORMOCEPHALIC Discharge Plan - Discharge Medications Prescriptions: Mupirocin 2% Ointment [Bactroban Ointment] 1 applic TOP BID #1 tube DAPTOmycin [Cubicin] 420 mg IV DAILY #42 vial - Follow Up Plan Condition: FAIR Disposition: HOME/ ROUTINE Instructions: Methicillin-Resistant Staphylococcus aureus (MRSA), Peripherally- Inserted Central Catheter, Cellulitis (Skin Infection), Adult (DC) Additional Instructions: you will need to perform daily wound care to right foot clean wound with betadine and then apply bactroban and then apply clean dry dressing wear surgical shoe. rn from [facility] to see you tonight at home for picc line and antibiotic instructions if any problems or concerns call follow up with dr can -lepidopterist in 1 week follow up with dr kimbrough and dr lucero respectively in 2 weeks Referrals: Olvin Can DPM [Staff Provider] - Esa Gonzalez MD [Staff Provider] - Ant Kimbrough MD [Staff Provider] -
== END 2018-08-18 15:50 | disposition home or self-care (01) | DRG 872 ==
LOC: H.ER 16:15 → H.ERHOLD 20:47 → H.PEDS 23:40
PROVIDERS: ADMIT Internal Medicine; ATTEND Internal Medicine
PROC: 02H633Z Insertion of Infusion Device into Right Atrium, Percutaneous Approach (ICD-10-PCS; principal; 2018-08-18)
DX: R78.81 Bacteremia (principal); L03.115 Cellulitis of right lower limb; Z91.010 Allergy to peanuts; Z88.0 Allergy status to penicillin; Z91.013 Allergy to seafood; I35.1 Nonrheumatic aortic (valve) insufficiency; J45.909 Unspecified asthma, uncomplicated; B95.62 Methicillin resistant Staphylococcus aureus infection as the cause of diseases classified elsewhere; L97.519 Non-pressure chronic ulcer of other part of right foot with unspecified severity